=== PATIENT | female | born 1965 | race Caucasian/White ===

== ENCOUNTER → 2017-09-27 | Outpatient (CLI) | payer MEDICARE, MEDICAID ==
[~2017-09-27] MED LIST: ALPR.25T PO; BSP10T PO; DILT60TA PO; HCT25T PO; HYDR25CA5 PO; KCL20TCR PO; LANS15CA5 PO; LISI1TAB10 PO; LOVA20TA2 PO; SERT25TA PO
--- NOTE | 2017-09-30 10:13 | Diagnostic Imaging Report ---
INDICATION: Routine screening. COMPARISON: 02/06/2016 and 08/12/2014. PERSONAL HISTORY: Reportedly the patient has right breast pain and a right breast lump; however, the referring physician indicated they wanted a screening mammogram and not diagnostic mammography. TECHNIQUE: Screening digital mammography was performed bilaterally with a Computer Aided Detection (CAD) system. FINDINGS: Scattered fibroglandular densities are identified bilaterally. The parenchymal pattern is stable. No dominant mass or malignant appearing microcalcifications are seen. The axillae are unremarkable. IMPRESSION: No mammographic features suspicious for malignancy are identified. If the patient continues to have a right breast lump, diagnostic mammography and ultrasound could be considered for further evaluation. ACR BI-RADS Category 1: Negative. Result letter will be mailed to the patient. Note: At least 10% of breast cancer is not imaged by mammography. Dictated by: Dictated on workstation # [id number]
== END ==
LOC: RAD 08:43
PROVIDERS: ATTEND Physician Assistant Medical
DX: Z12.31 Encounter for screening mammogram for malignant neoplasm of breast (principal)
CPT/HCPCS: 77067

== ENCOUNTER → 2019-12-01 | Outpatient (CLI) | payer MEDICARE, MEDICAID ==
--- NOTE | 2019-12-01 14:29 | Diagnostic Imaging Report ---
INDICATION: Routine screening. COMPARISON: 09/27/2017 and 02/06/2016. TECHNIQUE: 2D and 3D bilateral screening mammography was performed with CAD. FINDINGS: Scattered fibroglandular densities are identified bilaterally. The parenchymal pattern is stable. No mass or malignant appearing microcalcifications are seen. The axillae are unremarkable. IMPRESSION: No mammographic features suspicious for malignancy are identified. ACR BI-RADS Category 1: Negative. Result letter will be mailed to the patient. Note: At least 10% of breast cancer is not imaged by mammography. Dictated by: Dictated on workstation # [id number]
== END ==
LOC: RAD 09:53
DX: Z12.31 Encounter for screening mammogram for malignant neoplasm of breast (principal)
CPT/HCPCS: 77063; 77067

== ENCOUNTER 2020-10-05 05:33 | Outpatient (CLI) | payer MEDICARE, MEDICAID ==
[~2020-10-05] VITALS: Ht 157.5 cm; Wt 90.9 kg
[2020-10-05] MEDS ORDERED: BUDE10.2 IH (10:25)
[2020-10-05] MEDS ORDERED: HYDR25TA4 PO (10:25)
[2020-10-05] MEDS ORDERED: SERT-414 PO (10:25)
[2020-10-05] MEDS ORDERED: DILT120C85 PO (10:25)
[2020-10-05] MEDS ORDERED: RT-ALBUINH IH (10:25)
[2020-10-05] MEDS ORDERED: CETI-458 PO (10:25)
[2020-10-05] MEDS ORDERED: PROP80CA4 PO (10:25)
[2020-10-05] MEDS ORDERED: MELA1TAB16 PO (10:25)
[2020-10-05] MEDS ORDERED: OMEP20CA18 PO (10:25)
[2020-10-05] MEDS ORDERED: HYDR-3781 PO (10:25)
[2020-10-05] MEDS ORDERED: LEVO25CA4 PO (10:25)
[2020-10-05] MEDS ORDERED: BUSP15TA60 PO (10:25)
[2020-10-05] MEDS ORDERED: LOVA40TA2 PO (10:25)
== END 2020-10-05 10:29 | disposition home or self-care (01) ==
LOC: PREOP 05:33
PROVIDERS: ATTEND Specialist
DX: Z01.818 Encounter for other preprocedural examination (principal)

== ENCOUNTER 2020-10-07 07:37 | Day surgery (SDC) | payer MEDICARE, MEDICAID ==
[~2020-10-07] VITALS: Ht 157 cm; Wt 90.9 kg
[~2020-10-07 07:37] MED LIST changes: +BUDE10.2 IH; +BUSP15TA60 PO; +CETI-458 PO; +DILT120C85 PO; +HYDR-3781 PO; +HYDR25TA4 PO; +LEVO25CA4 PO; +LOVA40TA2 PO; +MELA1TAB16 PO; +OMEP20CA18 PO; +PROP80CA4 PO; +RT-ALBUINH IH; +SERT-414 PO
[2020-10-07] MEDS ORDERED: TIMOLOL MALEATE 0.5% 5 ML (TIMOPTIC) BTL OU PRN (08:00)
[2020-10-07] MEDS ORDERED: LIDOCAINE PF 1% 2 ML VIAL IR PRN (08:00)
[2020-10-07] MEDS ORDERED: POVIDONE (BETADINE) OPHTH SOLN 5% 30 ML OP ONE (08:00)
[2020-10-07] MEDS ORDERED: MOXIFLOXACIN OPHTH SOLN 5 MG/ML 0.3 ML SYRINGE OP ONE (08:00)
[2020-10-07] MEDS: TETRACAINE 0.5% OPHTH SOLN 4 ML BTL (SINGLE DOSE ONLY) OU PRN ×4 (08:06→08:24)
[2020-10-07 08:07] VITALS: BP 130/90
[2020-10-07] MEDS: PHENYLEPHRINE 10% OPHTH (NEO-SYN) 5 ML BTL OU SCH ×3 (08:13→08:24)
[2020-10-07] MEDS: TROPICAMIDE 1% OPH SOLN (MYDRIACYL) 15 ML BTL OP SCH ×3 (08:13→08:24)
[2020-10-07] MEDS ORDERED: MIDAZOLAM 2 MG/2 ML (VERSED) VIAL ONE (08:41)
--- NOTE | 2020-10-07 08:56 | Ophthalmologist Pre-Op Note ---
Pre-Operative Progress Note H&P Reviewed The H&P was reviewed, patient examined and no changes noted. Date H&P Reviewed: Oct 07, 2020 Time H&P Reviewed: 08:56 Pre-Op Dx Cataract, Left Eye CHRISTA OLMSTEAD MD Oct 07, 2020 08:56
--- NOTE | 2020-10-07 09:19 | Ophthalmology Operative Report ---
Cataract removal/placement IOL PREOPERATIVE DIAGNOSIS: Cataract Left Eye POSTOPERATIVE DIAGNOSIS: Cataract Left Eye PROCEDURE: Cataract removal and placement of posterior chamber implant, left eye SURGEON: Tony Olmstead ANESTHESIA: Topical with sedation COMPLICATIONS: None ESTIMATED BLOOD LOSS: Minimal DESCRIPTION OF PROCEDURE: After proper informed consent was obtained, the patient, a 55 female, was taken to the Operating Room and the left eye was anesthetized with tetracaine. The left eye was then prepped and draped in the usual manner. A wire lid speculum was placed. A paracentesis was made at the left hand position. Preservative free lidocaine was injected into the anterior chamber followed by viscoelastic. A clear corneal incision was made in the temporal position. A capsulorrhexis was preformed and the central nuclear and cortical material were removed. The posterior capsule was polished and an Nicolas 19.0 [id number] was placed into the capsular bag. The residual viscoelastic was aspirated and balanced saline solution was injected into the anterior chamber. Moxifloxacin was injected into the anterior chamber. The wound was checked and found to be water tight. The patient tolerated the procedure well without complications. TONY OLMSTEAD MD Oct 07, 2020 09:19
[2020-10-07 09:30] VITALS: BP 134/83
[2020-10-07] MEDS ORDERED: acetaZOLAMIDE ER 500 MG CAP (DIAMOX SEQUELS) PO ONE (09:30)
--- NOTE | 2020-10-07 09:42 | Anesthesia-General Post-Op ---
MAC Patient Condition Mental Status/LOC: Same as Preop Cardiovascular: Satisfactory Nausea/Vomiting: Absent Respiratory: Satisfactory Pain: Controlled Complications: Absent Post Op Complications Complications None Follow Up Care/Instructions Patient Instructions None needed. Anesthesiology Discharge Order Discharge Order Patient is doing well, no complaints, stable vital signs, no apparent adverse anesthesia problems. No complications reported per nursing. CARISSA SLATER CRNA Oct 07, 2020 09:42
== END 2020-10-07 09:32 ==
LOC: SDC 07:37
PROVIDERS: ATTEND Specialist
DX: H25.12 Age-related nuclear cataract, left eye (principal); I10 Essential (primary) hypertension; J44.9 Chronic obstructive pulmonary disease, unspecified; F43.10 Post-traumatic stress disorder, unspecified; R19.7 Diarrhea, unspecified; G47.00 Insomnia, unspecified; E03.9 Hypothyroidism, unspecified; E78.00 Pure hypercholesterolemia, unspecified; F41.9 Anxiety disorder, unspecified; F32.9 Major depressive disorder, single episode, unspecified; Z88.0 Allergy status to penicillin; Z98.51 Tubal ligation status; Z83.3 Family history of diabetes mellitus; Z98.890 Other specified postprocedural states; Z79.899 Other long term (current) drug therapy
CPT/HCPCS: 66984; V2632

== ENCOUNTER → 2022-02-28 | Outpatient (CLI) | payer MEDICARE, MEDICAID ==
[~2022-02-28] MED LIST changes: +RT-ALBUTEROL SULF 2.5 MG/3 ML PRE-MIX VIAL INH ONE
== END ==
LOC: RT 08:57
PROVIDERS: ATTEND Nurse Practitioner Family
DX: J45.20 Mild intermittent asthma, uncomplicated (principal); Z99.81 Dependence on supplemental oxygen
CPT/HCPCS: 94060; 94726; 94729

== ENCOUNTER 2022-08-09 20:18 | Outpatient (CLI) | payer MEDICARE, MEDICAID ==
[~2022-08-09 20:18] MED LIST changes: +ALBU8.5H6 IH; -RT-ALBUINH IH; -RT-ALBUTEROL SULF 2.5 MG/3 ML PRE-MIX VIAL INH ONE
== END 2022-08-10 06:52 | disposition home or self-care (01) ==
LOC: SLEEP 20:18
PROVIDERS: ATTEND Nurse Practitioner Family
DX: G47.33 Obstructive sleep apnea (adult) (pediatric) (principal); G47.10 Hypersomnia, unspecified; E66.9 Obesity, unspecified; I10 Essential (primary) hypertension
CPT/HCPCS: 95811

== ENCOUNTER → 2022-12-05 | Outpatient (CLI) | payer MEDICARE, MEDICAID ==
[~2022-12-05] MED LIST changes: +DILT120C71 PO; -DILT120C85 PO
== END ==
LOC: CARD 10:35
PROVIDERS: ATTEND Internal Medicine Cardiovascular Disease
DX: I11.9 Hypertensive heart disease without heart failure (principal); I25.10 Atherosclerotic heart disease of native coronary artery without angina pectoris; R06.09 Other forms of dyspnea
CPT/HCPCS: 93306

== ENCOUNTER → 2022-12-05 | Outpatient (CLI) | payer MEDICARE, MEDICAID ==
[2022-12-05 10:03] LABS: ALBUMIN 4.1 GM/DL (3.2-4.5); BILIRUBIN,TOTAL 0.6 MG/DL (0.1-1.0); CALCIUM 9.6 MG/DL (8.5-10.1); CREATININE SERUM 0.91 MG/DL (0.60-1.30); POTASSIUM 4.6 MMOL/L (3.6-5.0); TOTAL PROTEIN 7.4 GM/DL (6.4-8.2)
== END ==
LOC: LAB 09:22
PROVIDERS: ATTEND Internal Medicine Cardiovascular Disease
DX: I10 Essential (primary) hypertension (principal); E78.2 Mixed hyperlipidemia; I25.10 Atherosclerotic heart disease of native coronary artery without angina pectoris; I65.23 Occlusion and stenosis of bilateral carotid arteries; Z82.49 Family history of ischemic heart disease and other diseases of the circulatory system
CPT/HCPCS: 36415; 80053; 80061

== ENCOUNTER → 2023-02-04 | Outpatient (CLI) | payer MEDICARE, MEDICAID ==
[~2023-02-04] MED LIST changes: +CATHETER FLUSH 10 ML SYR IVP PRN; +REGADENOSON 0.4 MG/5 ML SYR (LEXISCAN) IV ONE
[2023-02-04 08:56] VITALS: BP 152/78
--- NOTE | 2023-02-04 10:49 | Cardiology Stress Test Report ---
Stress Test Report Date of Procedure/Referring: Date of Procedure: Feb 04, 2023 PCP Ike Andrew - [facility] Admitting Physician Admitting Physician: Attending Physician: Rola Kraft MD Baseline Heart Rate: 78 Baseline Blood Pressure: Blood Pressure Systolic: 152 Blood Pressure Diastolic: 78 Baseline Vitals Vital Signs Date Time Temp Pulse Resp B/P (MAP) Pulse Ox O2 Delivery O2 Flow Rate FiO2 02/04/23 08:56 78 152/78 (102) Baseline EKG: Baseline EKG: NSR Summary After explaining the procedure to the patient, she signed a consent and then brought to the stress nuclear laboratory. Patient received 0.4 mg Lexiscan for stress test, ECG, heart rate and blood pressure were monitored continuously. Resting and stress dose of radio tracer were injected, imaging was acquired and reviewed in short axis, horizontal long axis and vertical long axis views. TID: 1.1 SSS: 2 SDS: 2 EF: 65 Patient tolerated Lexiscan well No ischemia or infarction noted on SPECT images Normal left ventricular size, ejection fraction 65% Copy Copies To 1: [facility]/ROLA HAYS MD Feb 04, 2023 10:49
== END ==
LOC: CARD 07:30
PROVIDERS: ATTEND Internal Medicine Cardiovascular Disease
DX: R06.09 Other forms of dyspnea (principal)
CPT/HCPCS: 78452; 93017; A9502